=== PATIENT | male | born 1960 | race Two or more races ===

== ENCOUNTER → 2024-08-08 | Outpatient (CLI) | payer OTHER, SELFPAY ==
--- NOTE | 2024-08-08 12:00 | XR_ITS ---
Examination: MRI cervical spine without intravenous contrast Date and time of exam: August 08, 2024 1341 hours INDICATIONS: Neck pain radiating to the left arm numbness in both hands 2 months Technique: Multiple axial and sagittal sections of the cervical spine to been obtained. T2 weighted sagittal sections, TR 3, 270, TE 117 T1-weighted sagittal sections, TR 500, TE 11 T1-weighted axial sections, TR 607, TE 12, axial sections TR 18, TE 27 and T2 weighted transverse sections, TR 3920, TE 122. Findings: Straightening normal cervical lordosis No cervical fracture Intact odontoid Moderate to advanced disc narrowing C3-C4, C4-C5, C5-C6 Diffuse cervical disc desiccation No localized enlargement cervical cord C2-C3 no disc protrusion C3-C4 4 mm central osteophyte disc complex, indenting the ventral margin cervical cord moderate bilateral neural foraminal C4-C5 4 mm central subarticular osteophyte disc complex, indenting the ventral margin cervical cord with advanced bilateral neural foraminal stenosis C5-C6 5 mm central subarticular osteophyte disc complex, indenting the ventral margin cervical cord with advanced bilateral neural foraminal stenosis C6-C7 advanced left neural foraminal stenosis C7-T1 no disc protrusion IMPRESSION: Severe spinal stenosis C4-C5, C5-C6 as above
== END | disposition home or self-care (01) ==
DX: M48.02 Spinal stenosis, cervical region (principal)
CPT/HCPCS: 72141